=== PATIENT | male | born 1955 | race Caucasian/White ===

== ENCOUNTER 2019-07-02 23:51 | Inpatient (IN) | payer OTHER ==
[~2019-07-02] VITALS: Ht 170.2 cm; Wt 77.1 kg
[2019-07-03 00:05] VITALS: Ht 170.2 cm; Wt 77.1 kg
[2019-07-03 02:02] LABS: PLATELET COUNT 141 x10^3mcL (130-400)
[2019-07-03 02:14] LABS: CALCIUM 8.6 mg/dL (8.5-10.1); CARBON DIOXIDE 25.9 mmol/L (21-32); CHLORIDE SERUM 98 mmol/L (98-107); CREATININE SERUM 1.2 mg/dL (0.7-1.3); GFR1 > 60 mL/min; GLUCOSE SERUM 250 mg/dL (74-106); POTASSIUM SERUM 3.7 mmol/L (3.5-5.1); SODIUM SERUM 133 mmol/L (136-145)
[2019-07-03 02:18] LABS: ALBUMIN 3.7 g/dL (3.4-5.0); ALKALINE PHOSPHATASE 58 U/L (46-116); ALT/SGPT 22 U/L (16-63); AMYLASE 36 U/L (25-115); AST/SGOT 5 U/L (15-37); BILIRUBIN TOTAL 2.78 mg/dL (0.20-1.00); LIPASE 57 IU/L (73-393); TOTAL PROTEIN, SERUM 6.8 g/dL (6.4-8.2)
[2019-07-03 02:55] LABS: UA SPECIFIC GRAVITY 1.015 (1.005-1.035); microscopic required? YES; urine erythrocyte TRACE (NEGATIVE)
[2019-07-03 05:58] VITALS: BP 135/70
[2019-07-03] MEDS ORDERED: SIN25100 PO (06:08)
[2019-07-03] MEDS ORDERED: METFORMIN850 M1 PO (06:09)
[2019-07-03 07:15] LABS: CHOLESTEROL/HDL RATIO 3.7
[2019-07-03 07:52] VITALS: BP 123/71
[2019-07-03 08:01] LABS: AMPHETAMINE QUAL UR NONE DETECTED (See below)
[2019-07-03 16:50] VITALS: BP 146/76
[2019-07-03 19:30] VITALS: BP 125/68
[2019-07-04 05:36] VITALS: BP 132/66
[2019-07-04 06:11] LABS: ALKALINE PHOSPHATASE 45 U/L (46-116); ALT/SGPT 18 U/L (16-63); AST/SGOT 10 U/L (15-37); BILIRUBIN TOTAL 2.1 mg/dL (0.20-1.00); CALCIUM 8.6 mg/dL (8.5-10.1); CARBON DIOXIDE 24.1 mmol/L (21-32); CHLORIDE SERUM 102 mmol/L (98-107); GFR1 > 60 mL/min; GLUCOSE SERUM 242 mg/dL (74-106); POTASSIUM SERUM 3.8 mmol/L (3.5-5.1); SODIUM SERUM 135 mmol/L (136-145); TOTAL PROTEIN, SERUM 6.5 g/dL (6.4-8.2)
[2019-07-04 06:13] LABS: BASOPHIL % 0.1 % (0-2); PLATELET COUNT 111 x10^3mcL (130-400); RED CELL DISTRIBUTION WIDTH 13.9 % (11.5-14.5)
[2019-07-04 07:51] VITALS: BP 117/67
[2019-07-04 12:33] VITALS: BP 149/73
[2019-07-04 13:54] VITALS: BP 149/73
== END 2019-07-04 16:11 | disposition home or self-care (01) | DRG 340 ==
LOC: ED 23:51 → MU 07-03 04:23
PROVIDERS: Emergency Medicine; Surgery; ADMIT Family Medicine
PROC: 0DTJ4ZZ Resection of Appendix, Percutaneous Endoscopic Approach (ICD-10-PCS; principal; 2019-07-03 12:30)
DX: K35.32 Acute appendicitis with perforation, localized peritonitis, and gangrene, without abscess (principal); E11.9 Type 2 diabetes mellitus without complications; G20 Parkinson's disease; L40.9 Psoriasis, unspecified; R91.1 Solitary pulmonary nodule; D72.820 Lymphocytosis (symptomatic)
CPT/HCPCS: 82962; 83880; 94150; G0378; G0480; J1650; J1885; J2270; J2543; J3010; J3490; Q0092